=== PATIENT | male | born 1950 | race Two or more races ===

== ENCOUNTER 2021-02-24 19:07 | Emergency (ER) | payer MEDICARE, OTHER ==
[~2021-02-24] VITALS: Ht 170.2 cm; Wt 64.4 kg
[2021-02-24 21:45] LABS: Basophils # (auto) 0.1 10 ^3/uL (0-0.2); Basophils % (auto) 0.9 % (0.0-2.0); Eosinophils # (auto) 0.2 10 ^3/uL (0-0.8); Hematocrit 42.9 % (41.0-53.0); Hemoglobin 14.8 g/dL (13.5-17.5); Lymphocytes # (auto) 2.2 10 ^3/uL (0.4-5.4); Mean Corpuscular Hemoglobin 30.7 pg (28.0-32.0); Mean Corpuscular Hgb Conc. 34.4 g/dL (32.0-36.0); Mean Corpuscular Volume 89.2 fL (80.0-100.0); Monocytes # (auto) 0.6 10 ^3/uL (0-1.3); Monocytes % (auto) 8.1 % (0.0-12.0); Neutrophils # (auto) 4.7 10 ^3/uL (1.6-8.6); Nucleated Red Blood Cells % 0.2 %; Red Blood Cells 4.81 10^6/uL (4.5-5.90); Red Cell Distribution Width 13.4 % (11.8-14.3); White Blood Cell 7.9 10^3/uL (4.4-10.8)
[2021-02-24 22:01] LABS: Albumin 3.5 g/dL (3.4-5.0); Anion Gap 7 (5-15); Blood Urea Nitrogen 11 mg/dL (7-18); Calcium 8.7 mg/dL (8.5-10.1); Carbon Dioxide 26 mmol/L (21-32); Chloride 106 mmol/L (98-107); Magnesium 2.7 mg/dL (1.6-2.6); Potassium 3.8 mmol/L (3.5-5.1); Sodium 139 mmol/L (136-145)
[2021-02-24 22:04] LABS: Alanine Aminotransferase 49 U/L (16-61); Aspartate Aminotransferase 26 U/L (15-37); BUN/Creatinine Ratio 13.8; GFR African American 123 mL/min; GFR Non-African American 102 mL/min; Glucose 84 mg/dL (74-106)
[2021-02-24 22:09] LABS: Alkaline Phosphatase 79 U/L (45-117); Bilirubin, Total 0.5 mg/dL (0.2-1.0); Total Protein 7.9 g/dL (6.4-8.2)
[2021-02-24 23:33] LABS: Urine Bacteria NONE SEEN /hpf (None Seen); Urine Blood Negative /uL (Negative); Urine Mucus FEW (None Seen); Urine Specific Gravity 1.018 (1.001-1.035); Urine WBC 1 /hpf (0 - 3)
[2021-02-25] MEDS ORDERED: IOHEXOL 350 MG/ML 100ML IJ ONE (00:59)
[2021-02-25 03:20] VITALS: BP 134/71
== END 2021-02-25 03:22 | disposition home or self-care (01) ==
LOC: ER 19:07
DX: R07.89 Other chest pain (principal); E78.00 Pure hypercholesterolemia, unspecified; E78.5 Hyperlipidemia, unspecified
CPT/HCPCS: 36415; 71045; 71275; 80053; 81001; 83735; 84484; 85025; 85379; 93005; 99285; Q9967